=== PATIENT | male | born 1970 | race Caucasian/White ===

== ENCOUNTER 2021-08-05 08:01 | Inpatient (IN) | payer OTHER ==
[2021-08-05 08:31] VITALS: BMI 21.4
[2021-08-05 10:04] LABS: INR 1.24 (0.83-1.09); PROTHROMBIN TIME (PATIENT) 14.3 SEC (9.7-13.0)
[2021-08-05 10:06] LABS: ACTIVATED PTT 28.4 SECONDS (25.2-36.5)
[2021-08-05 10:23] LABS: ALBUMIN 4.2 g/dl (3.4-5.0); BILIRUBIN,TOTAL 1.2 mg/dl (0.2-1); CALCIUM 9.3 mg/dl (8.5-10); CREATININE 0.9 mg/dl (0.55-1.3)
[2021-08-05 11:49] LABS: BASO % 0.6 % (0-2.0); EOS % 1.8 % (0-4.5); HEMATOCRIT 41.8 % (35.4-49); HEMOGLOBIN 14.4 GM/dL (11.7-16.9); LYMPH % 20.4 % (8-40); MCH 31.3 pg (25.7-33.7); MCHC 34.6 g/dl (32.0-35.9); MEAN CELL VOLUME 90.7 fl (80-96); MEAN PLT VOLUME 8.5 fl (7.5-11.1); MONO % 8.6 % (3.8-10.2); NEUT % 68.6 % (42.8-82.8); PLATELET COUNT 190 10^3/uL (134-434); RBC 4.61 M/mm3 (4.00-5.60); RDW 13.4 % (11.9-15.9); WHITE BLOOD COUNT 7.1 K/mm3 (4.0-10.0)
[2021-08-05] MEDS ORDERED: SODIUM CHLORIDE 1,000 ML IV ONE (14:01)
[2021-08-05] MEDS ORDERED: DIPHTH,PERTUSS(ACELL),TET VAC 0.5 ML VIAL IM ONE (18:10)
[2021-08-05] MEDS ORDERED: DIPHTH,PERTUSS(ACELL),TET 0.5 ML DISP.SYRIN IM ONE (20:36)
[2021-08-06 08:18] LABS: BASO % 0.7 % (0-2.0); EOS % 3.9 % (0-4.5); HEMATOCRIT 39.9 % (35.4-49); LYMPH % 19.1 % (8-40); MCH 31.7 pg (25.7-33.7); MCHC 34.9 g/dl (32.0-35.9); MEAN CELL VOLUME 90.8 fl (80-96); MEAN PLT VOLUME 7.9 fl (7.5-11.1); MONO % 9.1 % (3.8-10.2); NEUT % 67.2 % (42.8-82.8); PLATELET COUNT 159 10^3/uL (134-434); RDW 13.4 % (11.9-15.9); WHITE BLOOD COUNT 5.3 K/mm3 (4.0-10.0)
[2021-08-06 08:49] LABS: BLOOD UREA NITROGEN 10.1 mg/dL (7-18)
[2021-08-06 08:52] LABS: CREATININE 0.8 mg/dL (0.55-1.3)
[2021-08-06] MEDS ORDERED: ACETAMINOPHEN 325 MG TABLET (FP) ONE ×2 (13:46→20:34)
[2021-08-06] MEDS: ACETAMINOPHEN 325 MG TABLET (FP) PO PRN ×2 (14:16→20:35)
[2021-08-07 06:47] LABS: BASO % 0.5 % (0-2.0); HEMATOCRIT 40.5 % (35.4-49); LYMPH % 15.2 % (8-40); MCH 31.2 pg (25.7-33.7); MCHC 34.5 g/dl (32.0-35.9); MEAN CELL VOLUME 90.4 fl (80-96); MEAN PLT VOLUME 8.1 fl (7.5-11.1); NEUT % 71.3 % (42.8-82.8); PLATELET COUNT 162 10^3/uL (134-434); RBC 4.48 M/mm3 (4.00-5.60); WHITE BLOOD COUNT 6.9 K/mm3 (4.0-10.0)
[2021-08-07 07:17] LABS: CALCIUM 9.1 mg/dL (8.5-10.1)
[2021-08-07 07:18] LABS: ALBUMIN 3.9 g/dl (3.4-5.0); BLOOD UREA NITROGEN 10.4 mg/dL (7-18); MAGNESIUM 2.2 mg/dL (1.8-2.4)
[2021-08-07 07:21] LABS: CREATININE 0.8 mg/dL (0.55-1.3); PHOSPHOROUS 3.6 mg/dL (2.5-4.9)
[2021-08-07 07:22] LABS: BILIRUBIN,TOTAL 1.1 mg/dL (0.2-1); TOT PROT 6.6 g/dl (6.4-8.2)
[2021-08-07] MEDS ORDERED: LIDOCAINE 5% TOPICAL PATCH TP ONE (10:45)
[2021-08-07] MEDS: ACETAMINOPHEN 325 MG TABLET (FP) PO PRN (14:23)
[2021-08-07] MEDS ORDERED: LIDOCAINE PATCH REMOVAL MC ONE (22:00)
[2021-08-08 09:14] LABS: HEMATOCRIT 40.5 % (35.4-49); MCH 31.1 pg (25.7-33.7); MCHC 34.6 g/dl (32.0-35.9); MEAN PLT VOLUME 8.4 fl (7.5-11.1); PLATELET COUNT 170 10^3/uL (134-434); RDW 13.2 % (11.9-15.9); WHITE BLOOD COUNT 5.2 K/mm3 (4.0-10.0)
[2021-08-08] MEDS: LIDOCAINE 5% TOPICAL PATCH TP SCH (09:31)
[2021-08-08] MEDS: ACETAMINOPHEN 325 MG TABLET (FP) PO PRN ×2 (12:22→22:04)
[2021-08-08 13:15] LABS: BLOOD UREA NITROGEN 11.2 mg/dL (7-18); CALCIUM 8.8 mg/dL (8.5-10.1); CREATININE 0.5 mg/dL (0.55-1.3); MAGNESIUM 2.2 mg/dL (1.8-2.4)
[2021-08-08] MEDS ORDERED: POTASSIUM CHLORIDE TABS 20 MEQ TABLET.ER (FP) PO ONE (14:22)
[2021-08-08] MEDS ORDERED: LIDOCAINE PATCH REMOVAL MC SCH (22:00)
[2021-08-09 08:22] LABS: HEMATOCRIT 40.6 % (35.4-49); HEMOGLOBIN 14.4 GM/dL (11.7-16.9); MCHC 35.5 g/dl (32.0-35.9); MEAN CELL VOLUME 90.2 fl (80-96); MEAN PLT VOLUME 8.2 fl (7.5-11.1); PLATELET COUNT 167 10^3/uL (134-434); RDW 13.4 % (11.9-15.9); WHITE BLOOD COUNT 4.2 K/mm3 (4.0-10.0)
[2021-08-09 08:38] LABS: CALCIUM 8.8 mg/dL (8.5-10.1)
[2021-08-09 08:39] LABS: MAGNESIUM 2.1 mg/dL (1.8-2.4)
[2021-08-09 08:42] LABS: CREATININE 0.7 mg/dL (0.55-1.3); PHOSPHOROUS 3.1 mg/dL (2.5-4.9)
[2021-08-09] MEDS: LIDOCAINE 5% TOPICAL PATCH TP SCH (09:25)
[2021-08-09] MEDS: ACETAMINOPHEN 325 MG TABLET (FP) PO PRN (11:17)
[2021-08-09 18:45] VITALS: BP 139/62; PULSE 62; TEMP 98.3
== END 2021-08-09 19:34 | disposition home or self-care (01) | DRG 200 ==
LOC: FER 08:01 → JERBED 17:36 → J7W 08-07 11:28
PROVIDERS: ADMIT Internal Medicine; ATTEND Internal Medicine
PROC: 0W9930Z Drainage of Right Pleural Cavity with Drainage Device, Percutaneous Approach (ICD-10-PCS; principal; 2021-08-06)
DX: S27.0XXA Traumatic pneumothorax, initial encounter (principal); S22.31XA Fracture of one rib, right side, initial encounter for closed fracture; S27.321A Contusion of lung, unilateral, initial encounter; I48.0 Paroxysmal atrial fibrillation; W19.XXXA Unspecified fall, initial encounter; Y92.482 Bike path as the place of occurrence of the external cause; Y93.55 Activity, bike riding; Y99.9 Unspecified external cause status
CPT/HCPCS: 32557; 36415; 71045-TC-FY; 71046-TC-FY; 71250-TC; 80048; 80053; 83735; 84100; 85025; 85027; 85610; 85730; 86850; 86900; 86901; 93005; 93010; 99285-25; C1729; C1769; C9803; U0003; U0005